=== PATIENT | male | born 1955 | race Caucasian/White ===

== ENCOUNTER 2024-04-16 23:40 | Observation (INO) | payer MEDICARE, OTHER, SELFPAY ==
[2024-04-16 21:37] VITALS: BP 188/94
[2024-04-16 21:47] LABS: Glucose - Point of Care 151 mg/dl (70-99)
[2024-04-16 21:49] VITALS: BMI 24.4
[2024-04-16 21:55] LABS: % Basophils 0.2 % (0-2); % Immature Granulocytes 0.2 % (0-0.5); % Lymphocytes 32.3 % (20.5-51.1); % Monocytes 8.2 % (1.7-9.3); % Neutrophils 55.1 % (42.2-75.2); Absolute Eosinophils 0.4 10^3/uL (0-0.7); Absolute Lymphocytes 3.2 10^3/uL (1.2-3.4); Absolute Monocytes 0.8 10^3/uL (0.1-0.6); Absolute Neutrophils 5.4 10^3/uL (1.4-6.5); Hematocrit 52.1 % (39.0-52.0); Hemoglobin 17.3 g/dL (13.0-18.0); Mean Corp Hgb Conc. 33.2 g/dL (33.0-37.0); Mean Corpuscular Hgb 27.3 pg (27.0-31.0); Mean Corpuscular Volume 82.2 fL (80.0-94.0); Mean Platelet Volume 9.8 fL (7.4-10.4); Nucleated Red Blood Cells % 0 % (-); Platelet Count 230 10^3/uL (130-400); Red Blood Cell Count 6.34 10^6/uL (4.70-6.10); Red Cell Dist. Width 13.4 % (11.5-14.5); White Blood Cell Count 9.8 10^3/uL (4.8-10.8)
--- NOTE | 2024-04-16 21:56 | ED.CVA ---
History of Present Illness
General
Chief Complaint: CVA/TIA Symptoms
Time Seen by Provider: 04/16/24 21:44
Onset of Stroke Symptoms
Onset of symptoms known: Yes
Date of onset of symptoms: 04/16/24
History of Present Illness
History of Present Illness:
TIME OF INITIAL ENCOUNTER: 9:45 PM
HPI: At 8:45 PM tonight, the patient tried to stand up and abruptly felt wobbly and fell to the right side into the wall. He continues to have trouble walking. He has no headache. He never had any aphasia or dysarthria. He feels somewhat
improved currently but still feels that he cannot walk appropriately.
EXAM:
GENERAL: Well appearing in no distress
HEENT: Moist oral mucosa
CARDIOVASCULAR: No murmurs, normal heart rate, regular rhythm, No chest wall tenderness
PULMONARY: No respiratory distress, breath sounds are clear and equal
ABDOMEN: Soft with no peritoneal signs, no tenderness
NEUROLOGIC: Excellent strength all extremities, no coordination deficits, normal finger-nose bilaterally, normal [id number]-rr-hfsf bilaterally, he seemed to have a little bit of trouble walking and walk slower than typical, no aphasia, no dysarthria, no
sensory
PSYCHIATRIC: Appropriate mental status, normal insight and judgement
EXTREMITIES: Nontender, no edema, moves all extremities equally
SKIN: No rash, no lesions
NUMBER AND COMPLEXITY OF PROBLEMS ADDRESSED AT THE ENCOUNTER
� Chronic conditions affecting care: High blood pressure, history of IgA nephropathy
� Acute Exacerbation and/or Progression of Chronic Illness: This is an acute problem
� Differential Diagnosis includes: Acute CVA, labyrinthitis, alcohol use
AMOUNT AND/OR COMPLEXITY OF DATA TO BE REVIEWED AND ANALYZED
� I performed an independent evaluation of and my interpretation is:
EKG: Sinus 57, normal axis, no acute ST abnormality
CT: Noncontrast head CT unremarkable, CTA head and neck also
X-rays:
Laboratory Studies: CBC and chemistries unremarkable, alcohol undetected
Other:
� Review of other/old records: No old records available for review
� Clinical information was obtained by an independent historian: I spoke to at bedside
� Prescriptions/Medications Considered but not given:
� Further testing considered but not performed:
RISK OF COMPLICATIONS AND/OR MORBIDITY OR MORTALITY OF PATIENT MANAGEMENT
� Social determinants of health affecting care: Lives at home
� Discussion with other providers: As patient was called a stroke alert upon arrival, I discussed case with Dr. Davis who recommends giving aspirin. At his request we also check alcohol which was undetected. UDS pending.
Hospitalist for admission at 10:46 PM, Dr. Nugent.
� Escalation of care including admission/observation vs risk of discharge considered: The patient has an NIHSS = 0 however does have ongoing sensation of difficulty walking. Will plan to keep in the hospital for further
evaluation. Aspirin given.
ANY OTHER UPDATES:
10:20 PM: Blood pressure remains elevated but patient states that he did take his blood pressure medication a couple of hours prior to coming in here. Neurologic reexamination is unchanged.
Phy Exam
Physical Exam
Physical Exam:
See HPI
Course
Orders/Labs/Results
Orders:
Orders
04/16/24 21:40
Electrocardiogram (*1) Urgent
Reason for Study: TIA/Stroke
CT HEAD/NECK ANG STROKE ALERT Urgent
Comment:
Reason For Exam: ataxia
EKG- Treatment ONCE
04/16/24 21:44
CT HEAD STROKE ALERT W/o Cont Urgent
Comment:
Reason For Exam: acute ataxia
04/16/24 21:47
Alcohol Urgent
Complete Blood Count/With Diff Urgent
Comprehensive Metabolic Panel Urgent
04/16/24 21:58
Add On- LAB Urgent
Tests Added?: alcohol level
Urine Drug Abuse Screen Urgent
04/16/24 22:06
Aspirin 325 mg PO NOW STA
04/16/24 23:00
Flush (0.9% Sodium Chloride) [Flush (Nss)] See Dose Instructions IV PER PROTOCOL
04/16/24 23:28
Admit/Transfer Patient As Directed
Co-Sign Provider:
Level of Care: Observation services
Assign to:: Telemetry
Physician / Group: hospitalist
Diagnosis: TIA
Reason for Telemetry: CVA/TIA
Date to Stop Telemetry: 04/19/24
Time to Stop Telemetry: 11:00
PRN Pain Medication Management As Directed
May give lesser potent ordered pain med per pt: Yes
preference::
Protocol:: Medication orders for pain may be administered in a
manner that supports deferring to patient preference
when the pt is:
- Requesting an ordered lesser potent pain medication.
Least to most potent pain medications are defined
as: acetaminophen < NSAID < tramadol < opioids
(morphine, oxycodone, hydromorphone).
- Requesting a lesser dose of the same medication IF
ORDERED.
- Requesting a less intrusive route of administration
if both routes are prescribed by the provider (PO <
IV).
04/16/24 23:29
Code Status As Directed
Resuscitation Status: Full Code
04/19/24 11:00
DC Protocol for Telemetry ONCE
Abnormal Lab Results
04/16/24 04/16/24
21:45 21:47
RBC 6.34 H 10^6/uL
(4.70-6.10)
Hct 52.1 H %
(39.0-52.0)
Absolute Monos (auto) 0.8 H 10^3/uL
(0.1-0.6)
Glucose 135 H mg/dl
(70-99)
POC Glucose 151 H mg/dl
(70-99)
04/16/24 21:47
04/16/24 21:47
Vital Signs
Initial and Last Documented VS:
Initial Vital Signs
Temp Pulse Resp BP Pulse Ox
36.4 C 59 20 188/94 99
04/16/24 21:37 04/16/24 21:37 04/16/24 21:37 04/16/24 21:37 04/16/24 21:37
Last Documented Vital Signs
Temp Pulse Resp BP Pulse Ox
36.4 C 59 20 188/94 98
04/16/24 21:37 04/16/24 21:37 04/16/24 21:37 04/16/24 21:37 04/16/24 21:49
*Critical Care Note
Total Time (30-74mins, 75-104mins- exclusive of procedures): Not Applicable
ED Attending Note
-
Portions of this chart may have been created with voice recognition software.� Occasional wrong word or��sound alike� substitutions may have occurred due to the inherent limitations of voice recognition software.
Discharge Plan
Departure
Patient Disposition: Admit
Date of Disposition: 04/16/24
Time of Disposition: 23:08
Presentation/result/management discussed w/ accepting MD/DO: Hospitalist
Patient with high blood pressure during this ER visit?: Yes
Discharge Problem:
Ataxia
Referrals:
NONE,* [Family Provider] -
Interventions
Interventions:
*Risk Screen - Suicide Last Done: 04/16/24 21:49
*General Assessment Last Done: 04/16/24 21:49
*Neglect/Abuse Screening Last Done: 04/16/24 21:49
ED- Fall Risk Assessment Last Done: 04/16/24 21:49
*ED COVID-19 Vaccine History Last Done: 04/16/24 21:49
ED- Pulmonary Assessment Last Done: 04/16/24 21:49
ED- Neurological Assessment Last Done: 04/16/24 21:49
ED- Cardiac Assessment Last Done: 04/16/24 21:49
ED Swallowing Screen Last Done: 04/16/24 21:49
Discharge Date and Time
Print Language: THAI
[2024-04-16 22:13] LABS: ALT (SGPT) 34 U/L (0-50); AST (SGOT) 32 U/L (17-59); Albumin 4.6 g/dl (3.5-5.0); Alkaline Phosphatase 58 U/L (38-126); Blood Urea Nitrogen 20 mg/dl (9-20); Calcium 9.7 mg/dl (8.4-10.2); Carbon Dioxide 28 mmol/L (22-30); Chloride 100 mmol/L (98-107); Glucose 135 mg/dl (70-99); Sodium 139 mmol/L (135-145); Total Bilirubin 0.9 mg/dl (0.2-1.3); Total Protein 7.2 g/dl (6.3-8.2); eGFR > 60.00
[2024-04-16 22:16] LABS: Alcohol None Detected
[2024-04-16] MEDS: ASPIRIN 325 MG PO (22:21)
[2024-04-16 23:00] VITALS: BP 147/77
--- NOTE | 2024-04-16 23:19 | HPS.HSE ---
Family Physician
-
Family Physician: * NONE
Chief Complaint
-
Ataxia
History of Present Illness
This is a 68-year-old male with past medical history of hypertension hyperlipidemia who presents to the emergency department with acute onset of ataxia about 8 PM.
Patient reported that he stood up and felt as though he was being pushed. When he tried to walk he felt as though he was swaying. He appears to be being pushed or swaying forward. He denies a spinning sensation. He leaned against the wall and
then sat down on the commode in his toilet. There was no fall. He did not strike his head. He is not on any thinners. Patient reports the persistence of these sensation until arrival in the emergency department. He reports that he had some
heaviness in his bilateral lower extremities. Denies any focal deficits in his upper extremities. There was no speech abnormality. There was no facial droop. He denies any headache nausea or vomiting.
Patient denies any prior such episodes. He is says he has prediabetes. Denies any history of palpitations. Reports compliance with his daily Coreg.
In the emergency department he was hypertensive to 180/90, ECG with sinus bradycardia at 57, satting 90% on room air. CBC was unremarkable. Electrolytes BUN/creatinine were normal. CT of the head shows no acute abnormality. CT angio shows no
evidence of aneurysm dissection or occlusive disease.
Medical History
Past Medical History
Past Medical History: Reports HTN and Hypercholesterolemia
Past Surgical History: Reports Tonsilectomy
Social History
Tobacco: Non-smoker
Alcohol: None
Drug: None
Personal:
Living: With Family
Family History
Family History: Not pertinent
Allergies / Home Medications
Allergies reflects when Allergies were last updated in [employer].
Home Medications with original date entered in [employer]
Allergy/Medication List:
Allergies
Allergy/AdvReac Type Severity Reaction Status Date / Time
No Known Allergies Allergy Unverified 04/16/24 21:40
Carvedilol 25 mg p.o. tablet 25 mg p.o. twice daily
Atorvastatin 10 mg p.o. tablet 10 mg p.o. at bedtime
Review of Systems
-
History Source: Patient
Constitutional: Reports No Symptoms
EENT: Reports No Symptoms
Respiratory: Reports No Symptoms
Cardiac: Reports No Symptoms
Abdomen/GI: Reports No Symptoms
: Reports No Symptoms
Musculoskeletal: Reports No Symptoms
Skin: Reports No Symptoms
Neurological: Reports Dizzy
Endocrine: Reports No Symptoms
Hematologic/Lymphatic: Reports No Symptoms
Psych: Reports No Symptoms
Physical Exam
Vital Signs
Vital Signs
Temp Pulse Resp BP Pulse Ox
97.5 F 59 20 188/94 98
04/16/24 21:37 04/16/24 21:37 04/16/24 21:37 04/16/24 21:37 04/16/24 21:49
Physical Exam
General: Well Developed, Well Nourished, No Apparent Distress and Comfortable
HEENT: NormoCephalic, Anicteric and Moist mucous membranes
Respiratory: Clear
Cardiac: S1/S2 and Bradycardia
Breast: Deferred by me
GI: Soft, Non Tender, Non Distended and Normal Bowel Sounds
Rectal: Deferred by Provider
Genito-urinary: Deferred by me
Musculoskeletal: No Clubbing, No Cyanosis and No Edema
Skin: Warm
Neuro: AO x 3, No Motor Deficits, Cranial Nerves Intact, No Sensory Deficits and DTR's Intact & Symmetrical; No Slurred Speech, Facial Droop or Tremors
Hematologic/Lymphatic: No Lymphadenopathy
Psych: Calm
Laboratory Results
-
04/16/24 21:47
04/16/24 21:47
Laboratory Results
Total Bilirubin 0.9 mg/dl (0.2-1.3) 04/16/24 21:47
AST 32 U/L (17-59) 04/16/24 21:47
ALT 34 U/L (0-50) 04/16/24 21:47
Alkaline Phosphatase 58 U/L (38-126) 04/16/24 21:47
Data Reviewed
-
CT Scan: Report Reviewed by me
Medical Tests (Nuc Med, Echo, EKG etc): Image Personally Visualized and interpreted
Lab Data: Labs Reviewed by me
Old Records: Reviewed
Impression/Plan
-
IMPRESSION:
68-year-old with hypertension hyperlipidemia presents to the emergency department with an acute episode of ataxia without any other focal neurological deficits. Concern remains for a TIA versus CVA. Patient with normal labs, normal CT and CT
angio. ECG with sinus bradycardia. Risk factors include hypertension and hyperlipidemia.
PLAN:
CVA/TIA
- admit to telemetry observation
- neurochecks q 4 hours
- mri in am, if positive consider echo
- lipid panel, a1c, tsh and esr in am
- neuro oks aspirin for now
- continue coreg in am
- orthostatics
- PT evaluation
- neuro consultation
DVT PPX - lovenox sq
Code status - full code
[2024-04-17] VITALS (17 sets, daily range): BP systolic 117–213; BP diastolic 63–94; PULSE 48–53; O2SAT 99; BMI 25.1
[2024-04-17 01:20] LABS: Amphetamines Negative (Negative); Barbiturates Negative (Negative); Benzodiazepines Negative (Negative); Buprenorphine Negative (Negative); Cocaine Negative (Negative); Marijuana Negative (Negative); Methadone Negative (Negative); Methamphetamines Negative (Negative); Opiates Negative (Negative); Phencyclidine Negative (Negative); Tricyclic Antidepressants Negative (Negative)
[2024-04-17 04:57] LABS: HDL Cholesterol 33 mg/dl; LDL Cholesterol, Calculated 76 mg/dl; Total Cholesterol 133 mg/dl (50-199); Triglyceride 124 mg/dl (10-149); Very Low Density Lipoprotein 24 mg/dl (0-30)
[2024-04-17 05:27] LABS: TSH 4.94 uIU/ml (0.47-4.68)
--- NOTE | 2024-04-17 05:34 | PTCARENOTE ---
Pt admitted to room 2247. AAOx3 SB on monitor. Denies pain, SOB or dizziness. NIH 0. Ortho BP completed and positive. Pt ambulates in the room independently. Pt oriented to room, call best in reach.
--- NOTE | 2024-04-17 07:24 | CON.NEURO ---
Neuro Assessment/Plan
Assessment
Abrupt onset of unsteadiness with ambulation
Differential diagnosis includes orthostatic hypotension, discovered by orthostatic blood pressures. The abrupt nature of the symptomatology, however, did not suggest this diagnosis initially.
The patient was not a candidate for either tenecteplase or intra-arterial thrombectomy as the patient was not thought to have had a stroke causing symptoms.
Plan
Continue to follow orthostatic blood pressures with 3-minute increments in between checking supine blood pressure, seated blood pressure and standing blood pressures with heart rates
Provide abdominal binder, to be used routinely
Outpatient blood work to evaluate for metabolic causes
Outpatient cardiac evaluations including potential echocardiography
Agree with adjustment of carvedilol to allow for slightly higher blood pressures to alleviate low blood pressures producing symptoms
MRI brain may be performed as outpatient to better evaluate for the possibility of an intracranial cause for symptoms
Rehabilitation evaluations
Will follow as outpatient
Consultation
Order
Date of Consultation: 04/17/24
Requesting Provider: Hospitalist
Reason for Consult: Gait unsteadiness
Subjective/Objective
Subjective Data
Date of Service: April 17, 2024
Right-Handed
No recent medical issues. The patient last evening, stood and became aware of unsteadiness with a tendency to fall towards the right side. As his problem did not significantly resolve with a short timeframe, he presented to this hospital's
emergency department. While in triage, a stroke alert was activated.
Gait instability has markedly improved this AM. Required focus to walk previously.
No associated symptoms.
No prior events.
Objective Data
Vital Signs
Temp Pulse Resp BP Pulse Ox
36.6 C 48 17 119/69 97
04/17/24 04:51 04/17/24 07:00 04/17/24 04:51 04/17/24 04:55 04/17/24 04:51
Lab Results
04/16/24 21:47
04/16/24 21:47
Sodium 139 mmol/L (135-145) 04/16/24 21:47
Potassium 4.0 mmol/L (3.5-5.1) 04/16/24 21:47
BUN 20 mg/dl (9-20) 04/16/24 21:47
Glucose 135 mg/dl (70-99) H 04/16/24 21:47
Calcium 9.7 mg/dl (8.4-10.2) 04/16/24 21:47
LDL Cholesterol, Calc 76 mg/dl 04/17/24 04:23
Ur Buprenorphine Negative (Negative) 04/17/24 00:50
Patient Allergies
No Known Allergies Allergy (Unverified 04/16/24 21:40)
CVA Assessment
Onset of Stroke Symptoms
Onset of symptoms known: Yes
Date of onset of symptoms: 04/16/24
Time of onset of symptoms: 20:00
Time pt last seen normal is known: Yes
Date last time pt seen normal: 04/16/24
Time last time pt seen normal: 20:00
NIH Stroke Score
Level of Consciousness: 0 - Alert
LOC Questions: 0-Answers both correctly
LOC Commands: 0-Performs both correctly
Best Horizontal Gaze: 0-Normal
Visual Boo: 0=Normal, no visual loss
Facial Palsy: 0=Normal, symmetrical
Motor - Right Arm: 0=No drift 10 seconds
Motor - Left Arm: 0=No drift 10 seconds
Motor - Right Le-No drift 5 seconds
Motor - Left Le-No drift 5 seconds
Limb Ataxia: 0-Absent
Sensation: 0-Normal
Best Language: 0-No aphasia
Dysarthria: 0-Normal
Extinction and Inattention: 0-No abnormality
Total Score:: 0
Tenecteplase Contraindications
Inclusion and Exclusion criteria reviewed: Yes
Review of Systems
-
History Source: Patient
All other systems: Reviewed and negative
EENT: Negative Blurry Vision or Swallowing Difficulty
Respiratory: Negative Trouble Breathing
Cardiac: Negative Chest Pain
Abdomen/GI: Negative Incontinence of Stool
Genitourinary: Frequency; Negative Incontinence
Musculoskeletal: Negative Back Pain or Neck Pain
Neuro: Negative Dizzy or Headache
Physical Exam
-
General: No Apparent Distress and Appears Stated Age
Eyes: OU Absent Papilledema, Able to visualize OU, Round OU, [place] Conjunctivae and No Ptosis
HEENT: Anicteric and Moist Mucous Membranes
Neck: Full Range of Motion
Respiratory: No Dyspnea
Cardiac: No JVD
GI: Non-distended
Skin: Unremarkable
Extremities: No Clubbing, No Cyanosis and No Edema
Psych: Intact Judgement/Insight
Extended Neurological Exam
Mood & Affect: Mood Unremarkable and Affect Unremarkable
Attention Span & Concentration: Awake, Alert, Interactive and No Difficulty with 2 Step Request
Memory: Unremarkable
Tremor: Hand Tremor Absent and Head Tremor Absent
Speech: Quality Unremarkable and Quantity Unremarkable
Cranial Nerve II: Left Eye: Pupillary Reactivity Unremarkable, Pupillary Size Unremarkable and Visual Boo Intact
Cranial Nerve II: Right Eye: Pupillary Reactivity Unremarkable, Pupillary Size Unremarkable and Visual Boo Intact
Cranial Nerves III, IV, : Extraocular Movement: Extraocular Movement Full in all Directions and No Ptosis
Cranial Nerve VII: Facial Symmetry: Normal Facial Symmetry
Cranial Nerve VIII: Hearing: Unremarkable Hearing to Normal Conversational Volume (Bilaterally)
Cranial Nerves IX, X: Palate Movement: Palate Elevation Symmetric
Cranial Nerve XI: Shoulder Shrug: Unremarkable
Cranial Nerve XII: Tongue Protusion: Midline
Muscle Strength, Overall: Full Throughout
Muscle Bulk & Tone: Bulk Unremarkable and Tone Unremarkable
Pronator Drift: No Drift in Upper Extremities
Deep Tendon Reflexes: Unremarkable Throughout
Touch Sensation: Unremarkable
Coordination: Bwcjcc-bdyz-heethi Testing Unremarkable
Babinski Sign: Absent Bilaterally
Gait & Station: Romberg Test Negative
Data Reviewed
-
CT-A: Report Reviewed
CT Head: Report Reviewed
MRI Head: Pending
Orthostatic Testing: Report Reviewed
Labs: Report Reviewed
Reviewed with: Physician, Nurse, Patient and Family
Old Records: Summarized
Medications
-
Active Medications
Generic Name Dose Route Start Last Admin
Trade Name Freq PRN Reason Stop Dose Admin
Acetaminophen 650 mg 04/17/24 00:49
Acetaminophen 650 Mg Rectal Suppository RECTAL 05/15/24 00:48
Q4HPRN PRN
[place], mild pain, or temp >100.4F
Acetaminophen 650 mg 04/17/24 00:49
Acetaminophen 325 Mg Tablet PO 05/15/24 00:48
Q4HPRN PRN
[place], mild pain, or temp >100.4F
Aspirin 81 mg 04/17/24 08:00
Aspirin 81 Mg Chewable Tablet PO 05/15/24 07:59
DAILY ADAM
Atorvastatin Calcium 10 mg 04/17/24 18:00
Atorvastatin (Lipitor) 10 Mg Tablet PO 05/15/24 17:59
QPM ADAM
Carvedilol 25 mg 04/17/24 08:00
Carvedilol 25 Mg Tablet PO 05/15/24 07:59
BID ADAM
Enoxaparin Sodium 40 mg 04/17/24 18:00
Enoxaparin Sodium 40 Mg/0.4 Ml Syringe SC 05/15/24 17:59
QPM ADAM
Hydralazine HCl 5 mg 04/17/24 00:49
Hydralazine 20 Mg/Ml Vial IV 05/15/24 00:48
Q6HPRN PRN
for SBP > 180
Ondansetron HCl 4 mg 04/17/24 00:49
Ondansetron 4 Mg/2 Ml Vial IV 05/15/24 00:48
Q6HPRN PRN
NAUSEA/VOMITING
Sodium Chloride 0 flush 04/16/24 23:00
Sodium Chloride 0.9% (Flush) Syringe IV 05/14/24 22:59
PER PROTOCOL ADAM
Home Medications
�Medication �Instructions �Recorded
atorvastatin 10 mg DAILY 04/17/24
carvedilol 25 mg BID 04/17/24
esomeprazole magnesium 20 mg 20 mg PO Q OTHER DAY 04/17/24
capsule,delayed release (Nexium)
omega-3 acid ethyl esters 1 gram 1 cap PO BID 04/17/24
capsule (Lovaza)
Past History
Past History
ED Past Medical History: HTN and Hypercholesterolemia
ED Past Surgical History: Tonsilectomy
Social History
Tobacco: Non-smoker
Alcohol: None
Drug: None
Personal:
Living: with family
Employment: Employed
Family History
Family History: Other (reviewed and non-contributory)
[2024-04-17 07:30] LABS: Erythrocyte Sed Rate 10 mm/hour (0-20)
--- NOTE | 2024-04-17 08:51 | PTCARENOTE ---
Neuro check WNL and NIHSS =0, Pt denies any current symptoms. Sinus colton on monitor, HR 50's, AM dose of Coreg not given d/t low HR. It was later D/C'd.
--- NOTE | 2024-04-17 09:44 | PTOTSP ---
Patient demonstrates safe and independent mobility, no skilled physical therapy needs.
--- NOTE | 2024-04-17 10:39 | PTCARENOTE ---
Abdominal binder applied
--- NOTE | 2024-04-17 12:02 | W.PN.HOSP.TC ---
Today's Communication/Plan
-
Reduce carvedilol to 12.5 twice daily
Discharge with BP cuff
Follow-up with PCP, referral provided
Assessment / Plan
Assessment / Plan
#Orthostatic hypotension
#Chronic hypertension
#Ataxia
-Presented with ataxia associated with positional changes over the last day to 2
-Home medications include carvedilol 25 mg twice daily for BP, no history of ASCVD or heart failure
-CT head and CTA were without any acute findings, nor findings of cerebrovascular disease or ICH
-Orthostatic vital signs positive upon arrival; symptomatically improved this morning on repeat
-Reduce carvedilol to 12.5 mg twice daily, encourage follow-up with PCP
-If patient has continued symptoms on carvedilol 12.5 then discontinue
-Provided blood pressure cuff, encouraged recording 3 times daily prior to follow-up with PCP
-Continue with aspirin and have OP neurology follow-up for consideration of MRI
I have discussed this case with neurology who agrees MRI does not need to be performed as an inpatient as symptoms have resolved and clinically more consistent with orthostasis.
>30 minutes of time spent on discharge planning, prep work, communication.
Anticipated Discharge: Today
Subjective/Interval History
-
Date of Service: April 17, 2024
Seen and examined bedside. No acute vents reported overnight. AFVSS this morning
Orthostatic vital signs were positive yesterday, and associated with symptoms. Was working with PT when I entered the room today, no symptoms on orthostatic vitals
He denies any new complaints today. Denies history of ASCVD, heart failure, known cerebrovascular disease
Objective Data
-
Vital Signs:
Vital Signs
Temp Pulse Resp BP Pulse Ox
97.7 F 54 16 140/80 97
04/17/24 11:11 04/17/24 10:43 04/17/24 11:11 04/17/24 10:43 02/04/25 11:11
Review of Systems
-
History Source: Patient
All other systems: Reviewed and negative
Physical Exam
-
General: Well Developed, Well Nourished, No Apparent Distress and Comfortable
HEENT: Normocephalic, Atraumatic, Moist Mucous Membranes and Anicteric
Respiratory: Clear to Auscultation and Non Labored Respirations
Cardiac: Regular Rhythm and S1/S2; Negative Murmur, Rub or Gallop
GI: Soft, Nontender, Nondistended and Normal Bowel Sounds
Musculoskeletal: No Clubbing, No Cyanosis, No Edema and Normal Gait & Station
Skin: Warm, Dry and Normal Turgor; Negative Rash
Neuro: AO x 3, Nonfocal/Grossly Intact and Central Nerve's Intact
Psych: Calm
Data Reviewed
-
Labs: Labs Reviewed by me, Discussed with Patient and Discussed with Family
[2024-04-17] MEDS: LOW STRENGTH ASPIRIN 81 MG PO (12:30)
--- NOTE | 2024-04-17 12:45 | CM ---
Chart reviewed. Patient is independent of ADLS, lives with his 2 STH, 2 [facility], 0 DME. Plan is for the patient to return home. CM to follow
--- NOTE | 2024-04-17 14:57 | W.DCSUMMARY ---
Discharge Summary
Discharge Data
Date of Admission: 04/16/24
Date of Discharge: 04/17/24
-
Pending Results: No
Hospital Course
68-year-old male with hypertension and hyperlipidemia that presented to the hospital with a complaint of ataxia/disequilibrium that started within the last 2 days, associated with positional changes. Upon arrival CT head and CTA head and neck were
without any acute findings nor findings of relevant cerebrovascular disease. No signs of ICH or mass effect. Had orthostatic vital signs taken which were positive and associated with symptoms. Held home carvedilol, repeated orthostatic vital
signs the next day with no reproducible symptoms. Suspect orthostatic hypotension as etiology. Reduced carvedilol to 12.5 mg twice daily, advised him to discontinue if he continued to have symptoms. Urged him to be cautious with positional
changes. Advised him to drink 64 ounces of water daily. Prescribed him a blood pressure cuff, given directive to have home blood pressure recorded 3 times daily prior to next visit with PCP. Was started on aspirin for primary stroke prevention
pending outpatient MRI with neurology follow-up.
Discharge Plan
-
Patient Disposition: Home (Routine Discharge)
Discharge Diagnosis/Procedures: Orthostatic hypotension
Ataxia/disequilibrium
Condition: Good
Diet: No added salt
Additional Diets: Drink 64 ounce or more of water daily
Activity: As tolerated
Additional Activity: Use caution with positional changes, monitor for symptoms of lightheadedness/disequilibrium
Driving Restrictions: No driving for 24 hours
Bathing Restrictions: None
Blood Work: None
Others Tests: Outpatient MRI with neurologist
Activity Restrictions/Additional Instructions:
After discharge from the hospital schedule follow-up appointment with your family doctor. Should be seen in the office within 1 to 2 weeks of discharge.
Monitor your blood pressure 3 times daily and write the numbers down into a book, take the booklet with you into your next family doctor appointment. Allow yourself 15 minutes of rest prior to recording your blood pressures.
If your blood pressure reading at home is >220 mmHg on the top number and call your physician for further directions
Instructions: Orthostatic hypotension
Referrals:
Nate Kat MD [Active] - in less than 1 week
Arturo Davis MD [Active] - in three to four weeks
NONE,* [Family Provider] -
Additional Discharge Medication Instructions: Reduced dose of carvedilol to 12.5 mg twice daily. If you notice you are still having symptoms on this dose of medication then stop taking carvedilol and call your doctors to schedule an appointment.
Take aspirin 81 mg daily for primary prevention of strokes and heart disease. If you develop dark black tar-like stools or noticed bright red blood in your stools then stop taking aspirin.
Prescriptions:
New
aspirin 81 mg Tablet,Chewable
81 mg PO DAILY 30 Days Qty: 30 0RF
carvedilol 12.5 mg tablet
12.5 mg PO BID 30 Days Qty: 60 0RF
(DME) WatchBP Home Cuff Misc
See Rx Instructions .Route Qty: 1 0RF
Rx Instructions:
As directed
Continued
atorvastatin
10 mg DAILY
omega-3 acid ethyl esters [Lovaza] 1 gram Capsule
1 cap PO BID
esomeprazole magnesium [Nexium] 20 mg Capsule,Delayed Release(Dr/Ec)
20 mg PO Q OTHER DAY
Discontinued
carvedilol
25 mg BID
Discharge Orders:
Discharge Patient (As Directed); Ordered 04/17/24
Ordered By: Daryl Pinto
Care Plan Goals
Care Plan Goals:
Problem: Readiness for enhanced knowledge related to diagnosis and treatment plan
Goal: Understand your diagnosis and treatment plan needs, including medications if applicable.
Instructions: Know your diagnosis, underlying causes and treatment plan options, including medications if applicable. Consult with your health care team to learn about your diagnosis and treatment plan, including medications if applicable.
Discharge Date and Time
Discharge Date/Time: 04/17/24 13:23
Print Language: SERBIAN
== END 2024-04-17 13:23 | disposition home or self-care (01) ==
LOC: IVU 23:40
PROVIDERS: Physician Assistant; ADMITTING PHYSICIAN Internal Medicine; ATTENDING PHYSICIAN Internal Medicine; CONSULT PHYSICIAN Psychiatry & Neurology Neurology; EMERGENCY PHYSICIAN Emergency Medicine
DX: I95.1 Orthostatic hypotension (principal); R27.8 Other lack of coordination; R26.2 Difficulty in walking, not elsewhere classified; W01.198A Fall on same level from slipping, tripping and stumbling with subsequent striking against other object, initial encounter; Y93.89 Activity, other specified; Y92.009 Unspecified place in unspecified non-institutional (private) residence as the place of occurrence of the external cause; I10 Essential (primary) hypertension; E78.00 Pure hypercholesterolemia, unspecified; R73.03 Prediabetes; R00.1 Bradycardia, unspecified; M50.30 Other cervical disc degeneration, unspecified cervical region; M43.12 Spondylolisthesis, cervical region
CPT/HCPCS: 70450; 70496; 70498; 80053; 80061; 80306; 82077; 82962; 83036; 84443; 85025; 85652; 93005; 97163; 99285; G0378; Q9967

== ENCOUNTER 2024-05-31 16:31 | Emergency (ER) | payer MEDICARE, OTHER, SELFPAY ==
[2024-05-31 16:35] VITALS: BP 204/97
[2024-05-31 17:17] VITALS: BMI 23.7
[2024-05-31 17:21] VITALS: BP 216/86
[2024-05-31 17:33] LABS: Hematocrit 48.6 % (39.0-52.0); Hemoglobin 16.2 g/dL (13.0-18.0); Mean Corp Hgb Conc. 33.3 g/dL (33.0-37.0); Mean Corpuscular Hgb 27.3 pg (27.0-31.0); Platelet Count 230 10^3/uL (130-400); Red Blood Cell Count 5.93 10^6/uL (4.70-6.10); Red Cell Dist. Width 13.6 % (11.5-14.5); White Blood Cell Count 7.9 10^3/uL (4.8-10.8)
[2024-05-31 17:35] LABS: Urine Albumin Negative (Neg - Trace); Urine Bilirubin Negative (Negative); Urine Character Clear (Clear); Urine Color Yellow; Urine Glucose Negative (Negative); Urine Ketone Negative (Negative); Urine Leukocyte Negative (Negative); Urine Nitrite Negative (Negative); Urine Occult Blood Negative (Negative); Urine Specific Gravity 1.015 (<1.030); Urine Urobilinogen Negative (Neg - 1+)
[2024-05-31 17:50] LABS: ALT (SGPT) 33 U/L (0-50); AST (SGOT) 29 U/L (17-59); Alkaline Phosphatase 49 U/L (38-126); Blood Urea Nitrogen 17 mg/dl (9-20); Calcium 9.6 mg/dl (8.4-10.2); Carbon Dioxide 28 mmol/L (22-30); Chloride 104 mmol/L (98-107); Estimated Creatinine Clearance 73 ml/min; Glucose 80 mg/dl (70-99); Potassium 3.8 mmol/L (3.5-5.1); Sodium 139 mmol/L (135-145); Total Bilirubin 0.9 mg/dl (0.2-1.3); Total Protein 6.8 g/dl (6.3-8.2); eGFR > 60.00
[2024-05-31 18:00] VITALS: BP 189/79
--- NOTE | 2024-05-31 18:24 | ED.GENMED ---
History of Present Illness
General
Chief Complaint: Flank Pain
Time Seen by Provider: 05/31/24 16:43
History of Present Illness
History of Present Illness:
68-year-old male presents emergency department for evaluation of right flank pain is been occurring and brief episodes for the past 3 days. Sharp pain, nonradiating, lasts mere seconds before resolving. No obvious provoking or palliating factors.
Feels comparable to prior kidney stones. No fevers or chills. No pain at present
Past History
Past History
ED Past Medical History: HTN and Hypercholesterolemia
ED Past Surgical History: Tonsilectomy
Social History
Tobacco: Non-smoker
Alcohol: None
Drug: None
Personal:
Living: with family
Employment: Employed
Family History
Family History: Other (reviewed and non-contributory)
Review of Systems
Review of Systems
Allergies reviewed?: Yes
All Other Systems: ROS reviewed and negative except as documented in HPI and ROS
Phy Exam
Physical Exam
Physical Exam:
GEN: Well appearing, NAD, WDWN
HEENT: Oral mucosa moist, no scleral icterus
Cardiac: Regular rate
Lung: No respiratory distress, no tachypnea
Abdomen: Soft, grossly nontender, no CVA tenderness
MSK: No gross deformity or injuries
Skin: Good color, no pallor or jaundice, no rashes
Neuro: AO x3, moves all extremities freely
Psych: Calm, cooperative
Course
Orders/Labs/Results
Orders:
Orders
05/31/24 16:58
CT Abd/pel Without Iv Or Oral Urgent
Comment:
Reason For Exam: R flank pain
05/31/24 17:20
Complete Blood Count/No Diff Urgent
Comprehensive Metabolic Panel Urgent
Urinalysis Reflex To Culture Urgent
Date Specimen was Collected: 05/31/24
Time Specimen was Collected: 17:17
05/31/24 17:20
05/31/24 17:20
Vital Signs
Initial and Last Documented VS:
Initial Vital Signs
Temp Pulse Resp BP Pulse Ox
98.4 F 59 16 204/97 99
05/31/24 16:35 05/31/24 16:35 05/31/24 16:35 05/31/24 16:35 05/31/24 16:35
Last Documented Vital Signs
Temp Pulse Resp BP Pulse Ox
98.4 F 50 24 189/79 97
05/31/24 16:35 05/31/24 18:00 05/31/24 18:00 05/31/24 18:00 05/31/24 17:45
MDM/Problems Addressed
MDM/Problems Addressed:
Labs and imaging reassuring, urinalysis negative. Likely musculoskeletal etiology, no evidence for stone on CT
*Critical Care Note
Total Time (30-74mins, 75-104mins- exclusive of procedures): Not Applicable
ED Attending Note
-
Portions of this chart may have been created with voice recognition software.� Occasional wrong word or��sound alike� substitutions may have occurred due to the inherent limitations of voice recognition software.
Discharge Plan
Departure
Patient Disposition: Home (Routine Discharge)
Date of Disposition: 05/31/24
Time of Disposition: 18:24
Patient with high blood pressure during this ER visit?: No
Discharge Problem:
Acute flank pain
Instructions: Flank Pain (DC)
Prescriptions:
No Action
atorvastatin
10 mg DAILY
omega-3 acid ethyl esters [Lovaza] 1 gram Capsule
1 cap PO BID
esomeprazole magnesium [Nexium] 20 mg Capsule,Delayed Release(Dr/Ec)
20 mg PO Q OTHER DAY
aspirin 81 mg Tablet,Chewable
81 mg PO DAILY 30 Days Qty: 30 0RF
carvedilol 12.5 mg tablet
12.5 mg PO BID 30 Days Qty: 60 0RF
(DME) WatchBP Home Cuff Misc
See Rx Instructions .Route Qty: 1 0RF
Rx Instructions:
As directed
Referrals:
UNKNOWN - PT DOES,NOT KNOW [Family Provider] -
Interventions
Interventions:
*Risk Screen - Suicide Last Done: 05/31/24 16:35
*General Assessment Last Done: 05/31/24 16:35
*Neglect/Abuse Screening Last Done: 05/31/24 16:54
*ED- Fall Risk Assessment Last Done: 05/31/24 16:54
*ED COVID-19 Vaccine History Last Done: 05/31/24 16:35
*Nursing Disposition Last Done: 05/31/24 18:33
SC-Lobrdo-Jvtlerxhtq Assessment Last Done: 05/31/24 17:17
ED-Male Genitourinary Assessment Last Done: 05/31/24 17:17
Discharge Date and Time
Discharge Date/Time: 05/31/24 18:45
Print Language: WELSH
== END 2024-05-31 18:45 | disposition home or self-care (01) ==
LOC: EMR 16:31
PROVIDERS: Physician Assistant; EMERGENCY PHYSICIAN Emergency Medicine
DX: R10.9 Unspecified abdominal pain (principal); I10 Essential (primary) hypertension; E78.00 Pure hypercholesterolemia, unspecified; Z87.442 Personal history of urinary calculi
CPT/HCPCS: 99284; 74176; 80053; 81003; 85027